=== PATIENT | female | born 1960 | race Caucasian/White ===

== ENCOUNTER 2020-01-08 18:07 | Inpatient (IN) ==
[2020-01-08] MEDS ORDERED: Ipratropium/Albuterol Neb 3 ML IH ONE (18:27)
[2020-01-08] MEDS ORDERED: predniSONE 20 MG TABLET PO STA (18:27)
[2020-01-08] MEDS ORDERED: cefTRIAXone 1,000 MG in Water for inj. (sterile) 10 ML IVP ONE (19:09)
[2020-01-08] MEDS ORDERED: Azithromycin 500 MG in 0.9 % Sodium Chloride 250 ML IVPB ONE (19:09)
[2020-01-08 19:51] LABS: Basophils % 0.4 %; Hematocrit 47.6 % (35.3-44.9); Hemoglobin 15.4 g/dL (11.5-15.4); Immature Granulocytes % 0.3 % (0-4); Lymphocytes # 1.6 K/mcL (0.6-4.6); Lymphocytes % 18.2 %; Mean Corpuscular HGB Conc 32.4 g/dL (31.6-35.5); Mean Corpuscular Volume 92.8 fL (83.0-100.0); Mean Platelet Volume 10.9 fL (9.4-12.4); Monocytes # 0.7 K/mcL (0.0-1.3); Monocytes % 7.5 %; Neutrophils # 6.6 K/mcL (1.6-8.9); Platelet Count 126 K/mcL (140-400); Red Blood Count 5.13 M/mcL (3.82-4.97); Red Cell Distribution Width 13.2 % (11.5-14.5); Segmented Neutrophils % 73.6 %
[2020-01-08 20:03] LABS: BUN/Creatinine Ratio 12 (6-26); Blood Urea Nitrogen 10 mg/dL (6-20); Calcium 8.8 mg/dL (8.6-10.3); Carbon Dioxide 22 mEq/L (23-29); Glucose 147 mg/dL (70-105); Troponin I < 0.03 ng/mL (< 0.04); eGFR For African Americans > 60 (> 60); eGFR For Non-African Americans > 60 (> 60)
[2020-01-08 20:34] LABS: Chloride 97 mEq/L (98-107); Osmolality,Calculated 276 (280-300); Potassium 3.7 mEq/L (3.5-5.1); Sodium 132 mEq/L (136-145)
[2020-01-08] MEDS ORDERED: Naloxone 0.4 MG/ML INJ IVP PRN (20:57)
[2020-01-08] MEDS ORDERED: *HR* Metoprolol 5 MG/5 ML VIAL IVP PRN (21:00)
[2020-01-08] MEDS ORDERED: Ringers Solution, Lactated 1,000 ML IVC SCH (21:30)
[2020-01-08] MEDS: Ipratropium/Albuterol Neb 3 ML IH SCH (23:28)
[2020-01-09 01:51] LABS: BUN/Creatinine Ratio 12 (6-26); Blood Urea Nitrogen 10 mg/dL (6-20); Calcium 8.6 mg/dL (8.6-10.3); Carbon Dioxide 27 mEq/L (23-29); Chloride 97 mEq/L (98-107); Glucose 184 mg/dL (70-105); Osmolality,Calculated 280 (280-300); Potassium 3.9 mEq/L (3.5-5.1); Sodium 133 mEq/L (136-145); eGFR For African Americans > 60 (> 60); eGFR For Non-African Americans > 60 (> 60)
[2020-01-09] MEDS: Ipratropium/Albuterol Neb 3 ML IH SCH ×6 (03:38→23:57)
[2020-01-09] MEDS ORDERED: *HR* Enoxaparin 40 MG/0.4 ML SYRINGE SQ SCH (06:00)
[2020-01-09 07:40] LABS: Adenovirus Not Detected (Not Detect)
[2020-01-09 07:41] LABS: Coronavirus 229E Not Detected (Not Detect); Coronavirus HKU1 Not Detected (Not Detect); Coronavirus NL63 Not Detected (Not Detect); Coronavirus OC43 Not Detected (Not Detect); Human Metapneumovirus Not Detected (Not Detect)
[2020-01-09 07:42] LABS: Bordetella Pertussis Not Detected (Not Detect); Chlamydophila pneumoniae Not Detected (Not Detect); Human Rhinovirus/Enterovirus Not Detected (Not Detect); Influenza A Subtype 2009 H1 Not Detected (Not Detect); Mycoplasma pneumoniae Not Detected (Not Detect); Parainfluenza Virus 1 Not Detected (Not Detect); Parainfluenza Virus 2 Not Detected (Not Detect); Parainfluenza Virus 3 Not Detected (Not Detect); Parainfluenza Virus 4 Not Detected (Not Detect); Respiratory Syncytial Virus Not Detected (Not Detect)
[2020-01-09 07:46] LABS: Influenza B DETECTED (Not Detect)
[2020-01-09] MEDS: Benzonatate 100 MG CAPSULE PO PRN ×2 (08:48→16:02)
[2020-01-09] MEDS: cefTRIAXone 1,000 MG in Water for inj. (sterile) 10 ML IVP SCH (08:49)
[2020-01-09 11:30] LABS: Estimated Average Glucose 137 mg/dl
[2020-01-09] MEDS: predniSONE 20 MG TABLET PO SCH (16:02)
[2020-01-09] MEDS ORDERED: predniSONE 20 MG TABLET PO SCH (18:00)
[2020-01-09] MEDS ORDERED: Azithromycin 500 MG in 0.9 % Sodium Chloride 250 ML IVPB SCH (19:00)
[2020-01-10 01:00] LABS: Basophils % 0.3 %; Hematocrit 43.1 % (35.3-44.9); Hemoglobin 14.1 g/dL (11.5-15.4); Immature Granulocytes % 0.3 % (0-4); Lymphocytes # 0.9 K/mcL (0.6-4.6); Lymphocytes % 13.2 %; Mean Corpuscular HGB Conc 32.7 g/dL (31.6-35.5); Mean Corpuscular Hemoglobin 30.1 pg (28.0-33.3); Mean Corpuscular Volume 91.9 fL (83.0-100.0); Monocytes # 0.2 K/mcL (0.0-1.3); Neutrophils # 5.6 K/mcL (1.6-8.9); Platelet Count 162 K/mcL (140-400); Red Blood Count 4.69 M/mcL (3.82-4.97); Red Cell Distribution Width 13.3 % (11.5-14.5); Segmented Neutrophils % 83.2 %; White Blood Count 6.7 K/mcL (4.3-11.1)
[2020-01-10 01:17] LABS: BUN/Creatinine Ratio 19 (6-26); Blood Urea Nitrogen 16 mg/dL (6-20); Calcium 8.8 mg/dL (8.6-10.3); Carbon Dioxide 23 mEq/L (23-29); Chloride 100 mEq/L (98-107); Glucose 208 mg/dL (70-105); Osmolality,Calculated 285 (280-300); Potassium 4.2 mEq/L (3.5-5.1); Sodium 134 mEq/L (136-145); eGFR For African Americans > 60 (> 60); eGFR For Non-African Americans > 60 (> 60)
[2020-01-10 01:34] LABS: Large Platelets Present (Not Present); Platelet Estimate Normal (Normal)
[2020-01-10] MEDS: Ipratropium/Albuterol Neb 3 ML IH SCH ×4 (03:33→15:27)
[2020-01-10] MEDS: cefTRIAXone 1,000 MG in Water for inj. (sterile) 10 ML IVP SCH (07:40)
[2020-01-10] MEDS: predniSONE 20 MG TABLET PO SCH (15:02)
[2020-01-10 15:56] VITALS: BP 189/96
== END 2020-01-10 16:46 | disposition left against medical advice (07) | DRG 139 ==
LOC: 2NENU 18:07 → EMEROOARM 18:07 → SUATTDRO 21:00 → 2NENU 21:30
PROVIDERS: ADMIT Family Medicine; ATTEND Internal Medicine